=== PATIENT | female | born 1965 | race African-American/Black ===

== ENCOUNTER 2019-06-01 19:08 | Emergency (ER) | payer MEDICAID ==
[~2019-06-01] VITALS: Ht 165.1 cm; Wt 70.3 kg
[2019-06-01 19:30] VITALS: BP 119/71
--- NOTE | 2019-06-01 19:30 | NUR ---
ED Nurse Note: Patient brought in by ambulance, found on bus stop bench with white residue around nose. Patient unable to state name or , unable to provide medical history. Patient speaks when spoken to but incomprehensible. Patient placed on manager cardiac and changed into gown. Left 18G AC IV placed by EMS prior to arrival. Per EMS, 6mg Narcan total was given. No acute distress noted during assessment.
--- NOTE | 2019-06-01 19:39 | NUR ---
ED Nurse Note: Xray at bedside.
--- NOTE | 2019-06-01 20:40 | NUR ---
ED Nurse Note: Reassessed patient, patient able to provide name and . Info given to registration.
--- NOTE | 2019-06-01 21:25 | NUR ---
ED Nurse Note: ERMD at bedside.
--- NOTE | 2019-06-01 21:29 | Emergency Room Report ---
History of Present Illness General Chief Complaint: Altered Level of Consciousness Source: Patient, EMS Present Illness HPI Patient presents by paramedics for reports of overdose It was reported the patient was found with another person unresponsive pinpoint pupils concern for possible opiate overdose Patient did respond to Narcan and was brought in for further evaluation upon arrival patient required some initial stimulation to arouse She did become more awake and alert was able to provide her name And some information denied any chest pain denies any vomiting or diarrhea patient did admit to doing heroin Allergies: Coded Allergies: UNABLE TO ASSESS (Unverified , 06/01/19) aloc, no family present Patient History Past Medical History: see triage record Last Menstrual Period: na Now: No Reviewed Nursing Documentation: PMH: Agreed; PSxH: Agreed Nursing Documentation-PMH Past Medical History Deferred: Pt Cognitively Impaired Past Medical History: Deferred Review of Systems All Other Systems: negative except mentioned in HPI Physical Exam Vital Signs Date Time Temp Pulse Resp B/P (MAP) Pulse Ox O2 Delivery O2 Flow Rate FiO2 06/01/19 19:13 97.9 100 14 146/84 (104) 100 Room Air Sp02 EP Interpretation: reviewed, normal General Appearance: no apparent distress Head: normocephalic, atraumatic Eyes: bilateral eye other - Pinpoint ENT: EOM grossly intact Neck: supple Respiratory: lungs clear, no respiratory distress, no retraction Cardiovascular #1: regular rate, rhythm Gastrointestinal: non tender, soft Musculoskeletal: normal inspection Neurologic: alert, oriented x3 Skin: no rash Lymphatic: no adenopathy Medical Decision Making Diagnostic Impression: Primary Impression: Substance abuse ER Course Patient had received Narcan in route and had shown response Patient became more awake and alert was able to provide her name and other information however during observation. Again became somnolent Pupils became pinpoint and patient required repeat Narcan dosing And remains in cardiac monitoring and further observation Patient signed out to my oncoming physician Dr spears EKG Diagnostic Results Rate: normal Rhythm: NSR ST Segments: no acute changes Rhythm Strip Diag. Results EP Interpretation: yes Rate: 66 Rhythm: NSR, no PVC's, no ectopy Chest X-Ray Diagnostic Results Chest X-Ray Diagnostic Results : Chest X-Ray Ordered: Yes # of Views/Limited/Complete: 1 View Indication: Chest Pain EP Interpretation: Yes Interpretation: no consolidation, no effusion, no pneumothorax Impression: No acute disease Electronically Signed by: Mariola De Los Santos DO Last Vital Signs Date Time Temp Pulse Resp B/P (MAP) Pulse Ox O2 Delivery O2 Flow Rate FiO2 06/01/19 19:30 97 23 Room Air 06/01/19 19:30 97.9 119/71 100 Status: improved Scripts Unable to Obtain Active Prescriptions or Reported Meds Mariola De Los Santos DO Jun 01, 2019 21:29
[2019-06-01] MEDS ORDERED: Naloxone 1mg/ml 2ml IVP ONE (21:30)
[2019-06-01 22:48] VITALS: BP 115/77
[2019-06-02 00:44] VITALS: BP 96/78
--- NOTE | 2019-06-02 00:44 | NUR ---
ER DISCHARGE NOTE: Patient is cleared to be discharged per ERMD, pt is aox4, on room air, with stable vital signs. pt was given dc instructions, pt was able to verbalize understanding, pt id band and iv site removed without complications. pt is able to ambulate with steady gait. pt took all belongings. pt stable upon discharge.
--- NOTE | 2019-06-02 11:57 | Diagnostic Imaging Report ---
Indication: Dyspnea Comparison: None A single view chest radiograph was obtained. Findings: Cardiomediastinal appearance is within normal limits for age and accounting for low lung volumes. The lungs are clear. Pulmonary vascularity is appropriate. The diaphragmatic contour is smooth and costophrenic angles are sharp. No pleural effusions are identified. The bones are unremarkable. Impression: No acute findings
== END 2019-06-02 00:44 | disposition home or self-care (01) ==
LOC: EDBD 19:08 → EMR 19:28
DX: F19.10 Other psychoactive substance abuse, uncomplicated (principal)
CPT/HCPCS: 71045; 93005; 96361; 96374; J2310; J7030; Z7502; 99284